=== PATIENT | female | born 1995 | race Caucasian/White ===

== ENCOUNTER 2020-12-16 17:41 | Emergency (ER) | payer OTHER ==
[~2020-12-16] VITALS: Wt 81.6 kg
== END 2020-12-16 19:12 | disposition home or self-care (01) ==
LOC: ED 17:41
DX: S61.011A Laceration without foreign body of right thumb without damage to nail, initial encounter (principal); S61.210A Laceration without foreign body of right index finger without damage to nail, initial encounter; Z88.0 Allergy status to penicillin; W25.XXXA Contact with sharp glass, initial encounter; Y93.89 Activity, other specified; Y92.89 Other specified places as the place of occurrence of the external cause; Y99.8 Other external cause status